=== PATIENT | male | born 1970 | race Caucasian/White ===

== ENCOUNTER 2022-04-22 13:22 | Day surgery (SDC) | payer OTHER, SELFPAY ==
[2022-04-22 14:00] VITALS: BMI 32.5
--- NOTE | 2022-04-22 14:10 | HO.ANESPROP2 ---
[facility] Active Problems Active Problems: All Active Problems (Updated 04/22/22 @ 13:51 by Kassy Vital RN) Anxiety (Acute) Back pain (Acute) Past Medical History Medical History (Updated 04/22/22 @ 13:51 by Kassy Vital RN) Back pain GERD (gastroesophageal reflux disease) PTSD (post-traumatic stress disorder) Restless leg syndrome Family History Family History Mother No problems noted. Father No problems noted. Family history of problems with anesthesia: No Surgical History Surgical History History of inguinal hernia repair History of shoulder surgery History of vasectomy History of Problems with Anesthesia: No Social History Social History Housing: House Patient Tobacco Use Status: Former Tobacco user Tobacco use type: Cigarette e-Cigarette/Vaping Use: Never Used Second Hand Smoke Exposure: No Use of substances other than those prescribed or required for medical reasons: Yes Are you DNR?: No Advance Directives: No Advance Directives Information Provided: Yes Recently lost weight without trying: No Nutrition Risks: No Nutritional Risk service: No Current occupational status: disabled Cognitive needs: No Hearing needs: No Vision needs: No Meds Allergies Allergy/AdvReac Type Severity Reaction Status Date / Time GINNA Inhibitors AdvReac Mild LETHARGY/FUZZY Verified 04/19/22 12:39 [GINNA INHIBITORS] FEELING Active Medications: Current Medications Sodium Biphosphate/Sodium Phosphate (Sodium Phosphate,[place]-Dibasic 133 Ml Enema) 133 ml TN ONCE PRN PRN Reason: Poor Colonoscopy Prep Results Exam Exam Date and Time: April 22, 2022 1410 Height,Weight and Vital Signs: Height 6 ft Weight 108.862 kg Airway Mallampati Class: II TM Dist: >3cm Neck ROM: Full Heart: rrr Lungs: cta Assessment and Plan Assessment Anesthesia Assessment: Anesthesia Plan Discussed Final Anesthetic Review Family History of Problems with Anesthesia: No History of Problems with Anesthesia: No NPO: Yes Final Preanesthetic Review: No Changes in Pt Med Stat, Meds/Allgs Chart Reviewed, Consent Obtained/Reviewed and Anes Risks/Benef Reviewed Patient Risk: Low Procedure Risk: Intermediate Anesthetic Plan Anesthetic Plan: MAC: Disposition: Standard PACU
[2022-04-22 14:12] VITALS: BP 165/124; PULSE 92; RESP 16; TEMP 36.9; O2SAT 97
[2022-04-22 14:17] VITALS: BP 185/107; PULSE 79
[2022-04-22] MEDS: Lactated Ringers 500 ML 20 ML IVCONT (14:24)
[2022-04-22 14:31] VITALS: BP 152/100; PULSE 72
--- NOTE | 2022-04-22 14:33 | PC.NURSE ---
MD ANAYA AWARE OF HTN. PATIENT INSTRUCTED TO SEE HIS PCP FOR HIS BP.
[2022-04-22 16:10] VITALS: BP 121/77; PULSE 72; RESP 18; TEMP 36.6; O2SAT 97
--- NOTE | 2022-04-22 16:13 | PM.OP ---
Brief Operative Note Date of Service: 04/22/22 Pre-op diagnosis: GERD, Screening Post-op diagnosis: other (Duodenitis, Gastritis, Hiatal hernia, Colon polyp) Procedure: EGD with biopsies, Colonoscopy to the cecum and TI with bx/removal of polyp Surgeon: Shiva Nelson Anesthesia: MAC Was an Senior Software Qa Analyst used for this Procedure?: No Estimated blood loss (mL): 2.0 Pathology: other (A. Gastric antrum B. EG Junction at 40cm C. Cecal polyp) Condition: stable Disposition: PACU
[2022-04-22 16:25] VITALS: BP 146/107; PULSE 79; RESP 18; TEMP 36.3; O2SAT 97
--- NOTE | 2022-04-23 02:59 | OP_ITS ---
SURGEON: Shiva Nelson MD INDICATIONS: Patient presents for evaluation of gastroesophageal reflux, colorectal cancer screening as well as some constipation and occasional hematochezia. Full consent has been obtained from him for both procedures, including risks of bleeding and perforation. PREOPERATIVE DIAGNOSIS: POSTOPERATIVE DIAGNOSIS: PROCEDURE PERFORMED: Esophagogastroduodenoscopy with biopsies, and colonoscopy to the cecum and terminal ileum with biopsy and removal of polyp. ESTIMATED BLOOD LOSS: COMPLICATIONS: ANESTHESIA: Medication used, monitored anesthesia care. ASSISTANTS: SPECIMENS: PREOPERATIVE DIAGNOSES: Gastroesophageal reflux, colorectal cancer screening, constipation, occasional hematochezia. POSTOPERATIVE DIAGNOSES: Gastroesophageal reflux, colorectal cancer screening, constipation, occasional hematochezia, small hiatal hernia, mild gastritis and duodenitis, colon polyp, diverticulosis, internal hemorrhoids. DESCRIPTION OF PROCEDURE: The patient was placed in the left lateral decubitus position. The Olympus video gastroscope was passed into the posterior oropharynx and upper esophagus under direct vision. Scope was passed slowly to the distal esophagus. The gastroesophageal junction appeared at 40 cm. There was some slight erythema and minimal irregularity consistent with reflux, but no evidence of esophagitis nor any definitive Laboy's mucosa. The scope was advanced into the stomach. There was a small hiatal hernia. The scope was advanced to the pylorus and the duodenum was cannulated to the descending portion. The duodenum, including the bulb, was carefully inspected. This appeared normal other than some very minimal changes of duodenitis in the duodenal bulb. There was no ulceration or mass. The scope was withdrawn back in the stomach. The gastric antrum and body had some changes of edema and erythema, but no erosions or ulceration. There was good peristalsis. Biopsies were obtained from the antrum. The scope was retroflexed visualizing the proximal stomach carefully, which appeared normal, without any sign of mass or ulceration. The scope was straightened and withdrawn back in the esophagus. Biopsies were obtained at the EG junction at 40 cm. Proximal to this, the esophageal mucosa appeared normal. The scope was withdrawn from the patient. He was turned around for the colonoscopy. The digital rectal exam revealed no abnormalities. The Olympus video pediatric colonoscope was entered into the rectum and advanced easily to the cecum. Once in the cecum, I did identify cecal pouch with appendiceal orifice and a normal-appearing ileocecal valve. The terminal ileum was cannulated and appeared normal. The scope was withdrawn back in the colon. The entire cecum and ileocecal valve appeared normal other than a 4 or 5 mm polyp in the cecum near the area of the appendiceal orifice which was biopsied and completely removed with the cold biopsy forceps. The remainder of the cecum appeared normal. The scope was slowly withdrawn assessing all mucosal surfaces carefully. Preparation was excellent. I did not visualize any sign of other polyps, colitis nor angiodysplasia. There was a mild amount of sigmoid diverticulosis. In the rectum, the scope was retroflexed visualizing internal hemorrhoids, but no other pathology. The rectal mucosa appeared normal. Scope was straightened out and withdrawn from the patient. He tolerated the procedure well and was returned to the recovery area in stable condition. IMPRESSION: 1. Colon polyp. 2. Diverticulosis. 3. Internal hemorrhoids. 4. Small hiatal hernia, gastroesophageal reflux. 5. Mild gastritis. 6. Mild duodenitis. PLAN: The results of the biopsies will be checked. He does report that the recent famotidine 40 mg prescription that he has been using over the past couple of weeks has definitely helped his reflux and he is no longer needing to use anything such as Pepto-Bismol. I did advise him to continue the famotidine once or twice daily either regularly or as needed. I do not think he needs a PPI at this point given the endoscopic findings and his response to the famotidine. If the colon polyp is a tubular adenoma, I would recommend a followup colonoscopy in 5 years. If it is only hyperplastic, I would recommend a followup colonoscopy in 10 years. He was advised not to use any aspirin or NSAIDs for 1 week. He was advised to use a bowel regimen such as Metamucil and/or MiraLax to help maintain some improved bowel movement regularity and avoid constipation. He will otherwise be seen on a p.r.n. basis. MD ANTHONY Correia/FREDA / [id number] TIFFANIE
== END 2022-04-22 16:31 | disposition home or self-care (01) ==
PROVIDERS: PCP Internal Medicine; Visit Provider Internal Medicine
PROC: (CPT 45380; principal; 2022-04-22 14:40)
DX: Z12.11 Encounter for screening for malignant neoplasm of colon (principal); D12.0 Benign neoplasm of cecum; K59.00 Constipation, unspecified; K57.30 Diverticulosis of large intestine without perforation or abscess without bleeding; K64.8 Other hemorrhoids; K21.9 Gastro-esophageal reflux disease without esophagitis; K29.50 Unspecified chronic gastritis without bleeding; K29.80 Duodenitis without bleeding; K44.9 Diaphragmatic hernia without obstruction or gangrene; M54.9 Dorsalgia, unspecified; G89.29 Other chronic pain; G25.81 Restless legs syndrome; F43.10 Post-traumatic stress disorder, unspecified; Z79.1 Long term (current) use of non-steroidal anti-inflammatories (NSAID); Z79.82 Long term (current) use of aspirin; Z79.899 Other long term (current) drug therapy
CPT/HCPCS: 45380; 43239; 88305; 88342; J2250; J3010

== ENCOUNTER 2022-05-29 08:13 | Outpatient (REF) | payer OTHER, SELFPAY ==
[2022-05-29 08:27] LABS: MANUAL DIFF FLAG NO
[2022-05-29 08:41] LABS: Basophils Absolute Auto 0.1 X10*3/uL (0.0-0.2); Eosinophils Absolute Auto 0.1 X10*3/uL (0.0-0.4); Hematocrit 41.8 % (42.0-52.0); Hemoglobin 14.1 g/dl (14.0-18.0); Imm Gran Abs Auto 0.01 X10*3/uL (0.00-0.03); Imm Gran Pct Auto 0.2 % (0.0-0.4); Lymphocytes Absolute Auto 1.9 X10*3/uL (1.2-4.9); Lymphocytes Percent Auto 38.5 % (20-40); Mean Corpuscular HGB Conc 33.7 g/dl (31.0-36.0); Mean Corpuscular Hemoglobin 29.2 pg (27.0-33.0); Mean Corpuscular Volume 86.5 fL (80.0-98.0); Monocytes Absolute Auto 0.6 X10*3/uL (0.1-1.2); Monocytes Percent Auto 12.4 % (2-11); Neutrophils Absolute Auto 2.3 x10*3/uL (2.0-8.3); Neutrophils Percent Auto 45.9 % (45-73); Platelet Count 341 X10*3/uL (160-400); Red Blood Count 4.83 X10*6/uL (4.60-5.80); Red Cell Distribution Width 13.4 % (11.0-16.0); White Blood Count 4.9 X10*3/uL (4.8-10.8)
[2022-05-29 09:08] LABS: Alanine Aminotransferase 20 U/L (0-40); Albumin Level 4.5 g/dL (3.5-5.0); Alkaline Phosphatase 64 U/L (39-117); Anion Gap 13 (12-20); Aspartate Amino Transferase 27 U/L (5-37); Bilirubin Total 0.9 mg/dL (0.0-1.0); Blood Urea Nitrogen 13 mg/dL (9-16); Calcium 9.6 mg/dL (8.4-10.2); Carbon Dioxide 25 mmol/L (22-29); Chloride 105 mmol/L (96-108); Cholesterol 307 mg/dL; Estimated Glomerular Filt Rate > 60; Glucose Fasting 102 mg/dL (60-99); HDL Cholesterol 45 mg/dL; LDL Cholesterol Calculated 222 mg/dl; Potassium 4.1 mmol/L (3.3-5.1); Sodium 139 mmol/L (135-145); Total Protein 7.6 g/dL (6.5-8.0); Triglycerides 200 mg/dL
== END 2022-05-29 08:14 | disposition home or self-care (01) ==
LOC: HO.LAB 08:13
PROVIDERS: PCP Internal Medicine; Visit Provider Internal Medicine
DX: Z13.0 Encounter for screening for diseases of the blood and blood-forming organs and certain disorders involving the immune mechanism (principal); I10 Essential (primary) hypertension; E78.5 Hyperlipidemia, unspecified
CPT/HCPCS: 36415; 80053; 80061; 85025